=== PATIENT | female | born 1945 | race Caucasian/White ===

== ENCOUNTER 2020-05-07 00:11 | Emergency (ER) | payer OTHER ==
[~2020-05-07] VITALS: Ht 154.9 cm; Wt 56.7 kg
[2020-05-07] MEDS ORDERED: NIFEDIPINE ER30 M1 PO (00:38)
[2020-05-07] MEDS ORDERED: VITAMIN D250 MCG PO (00:38)
[2020-05-07] MEDS ORDERED: ARICEPT10 M1 PO (00:39)
[2020-05-07] MEDS ORDERED: NEURONTIN 300M300 M2 PO (00:39)
[2020-05-07] MEDS ORDERED: LEVO-T100 MCG PO (00:40)
[2020-05-07] MEDS ORDERED: NAMENDA XR7 MG PO (00:40)
[2020-05-07] MEDS ORDERED: LORAZEPAM 1 MG T1 MG PO (00:41)
[2020-05-07 00:59] LABS: ABSOLUTE NEUTROPHILS 10.9 thou/uL (1.4-8.2); BASOPHILS 0.3 % (0.0-2.0); EOSINOPHILS 2.9 % (0.0-3.0); HEMATOCRIT 40.7 % (37.0-47.0); HEMOGLOBIN 13.7 gm/dL (12.0-15.0); MCH 31.8 pg (26.0-34.0); MCHC 33.6 g/dL (28.0-37.0); MCV 94.6 fL (80.0-100.0); MONOCYTES 5.1 % (1.0-8.0); PLATELET COUNT 289 thou/uL (150-400); POLYS 70.7 % (36.0-66.0); RDW 13.4 % (10.5-14.5); WBC 15.3 thou/uL (4.0-11.0)
[2020-05-07 01:08] LABS: ALBUMIN 3.9 g/dL (3.4-5.0); ANION GAP 12 mmol/L (7-16); BUN 13 mg/dL (7-18); CALCIUM 9.9 mg/dL (8.5-10.1); CHLORIDE 99 mmol/L (98-107); CO2 28 mmol/L (21-32); CREATININE 0.8 mg/dL (0.6-1.0); DIRECT BILIRUBIN < 0.1 mg/dL (<0.1-0.2); GLUCOSE 131 mg/dL (74-106); LIPASE 877 U/L (73-393); SGOT 29 U/L (15-37); SGPT 30 U/L (30-65); SODIUM 139 mmol/L (136-145); TOTAL BILIRUBIN 0.2 mg/dL (0.2-1.0)
[2020-05-07 01:12] LABS: POTASSIUM 2.9 mmol/L (3.5-5.1)
[2020-05-07 02:04] LABS: URINE BILIRUBIN NEGATIVE (Negative); URINE BLOOD NEGATIVE (Negative); URINE CLARITY SL CLOUDY; URINE COLOR YELLOW; URINE GLUCOSE-RANDOM* NEGATIVE (Negative); URINE KETONES NEGATIVE (Negative); URINE LEUKOCYTES-REFLEX NEGATIVE (Negative); URINE NITRITE-REFLEX NEGATIVE (Negative); URINE PROTEIN (DIPSTICK) NEGATIVE (Negative); URINE SPECIFIC GRAVITY 1.015 (1.005-1.035); URINE UROBILINOGEN 0.2 E.U./dl (0.2-1.0)
[2020-05-07] MEDS ORDERED: ZOFRAN ODT4 MG PO (03:34)
[2020-05-07 03:50] VITALS: BP 163/71
--- NOTE | 2020-05-07 08:08 | EKG ---
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 : 1945 Requested By: Anette Azul Order Number: [id number] MD: Ken Camarena Measurements Intervals [place] Rate: 73 P: 75 [place]: 151 QRS: 34 QRSD: 117 T: -20 QT: 423 QTc: 467 Interpretive Statements Sinus rhythm Nonspecific ST segment abnormality Compared to ECG 02/02/2007 09:21:26 Sinus bradycardia no longer present Electronically Signed On 05-07-2020 8:07:30 CDT by Ken Camarena [email or web address] <ELECTRONICALLY SIGNED> By: Ken Camarena MD, [facility] 05/07/20 0807 0024 0024 Ken Camarena MD, [facility] /EPI
== END 2020-05-07 03:51 | disposition home or self-care (01) ==
LOC: ER 00:11
PROVIDERS: Emergency Medicine
DX: K85.90 Acute pancreatitis without necrosis or infection, unspecified (principal); R11.2 Nausea with vomiting, unspecified; R42 Dizziness and giddiness; R07.9 Chest pain, unspecified; Z90.89 Acquired absence of other organs; Z79.899 Other long term (current) drug therapy; Z88.1 Allergy status to other antibiotic agents; Z88.5 Allergy status to narcotic agent

== ENCOUNTER 2021-10-13 16:35 | Emergency (ER) | payer OTHER ==
[~2021-10-13] VITALS: Ht 160 cm; Wt 53.5 kg
[~2021-10-13 16:35] MED LIST: ARICEPT10 M1 PO; LEVO-T100 MCG PO; LORAZEPAM 1 MG T1 MG PO; NAMENDA XR7 MG PO; NEURONTIN 300M300 M2 PO; NIFEDIPINE ER30 M1 PO; VITAMIN D250 MCG PO; ZOFRAN ODT4 MG PO
[2021-10-13 16:43] VITALS: BP 174/82
== END 2021-10-13 18:26 | disposition left against medical advice (07) ==
LOC: ER 16:35
DX: S00.81XA Abrasion of other part of head, initial encounter (principal); M25.532 Pain in left wrist; M25.531 Pain in right wrist; M25.562 Pain in left knee; M25.561 Pain in right knee; G40.909 Epilepsy, unspecified, not intractable, without status epilepticus; Z53.21 Procedure and treatment not carried out due to patient leaving prior to being seen by health care provider; Z90.89 Acquired absence of other organs; Z98.51 Tubal ligation status; Z98.890 Other specified postprocedural states; Z91.018 Allergy to other foods; Z88.1 Allergy status to other antibiotic agents; W01.0XXA Fall on same level from slipping, tripping and stumbling without subsequent striking against object, initial encounter; Y93.89 Activity, other specified; Y92.89 Other specified places as the place of occurrence of the external cause; Y99.8 Other external cause status